=== PATIENT | female | born 1990 | race Caucasian/White ===

== ENCOUNTER 2018-09-06 12:43 | Inpatient (IN) | payer MEDICAID, OTHER ==
[~2018-09-06] VITALS: Ht 165.1 cm; Wt 91.0 kg
[~2018-09-06 12:43] MED LIST: ETOMIDATE 2MG/ML 10ML VIAL IV ONE; IBUP-777 PO; SODIUM CHLORIDE 0.9% 10ML VIAL ONE; SUCCINYLCHOLINE CHLORIDE 200MG/10ML IV ONE; VECURONIUM BROMIDE 10 MG/VIAL IV ONE
[2018-09-06 13:42] LABS: BASOPHILS % 0.7 % (0.0-2.0); EOSINOPHILS % 0.7 % (0.0-5.0); HEMATOCRIT. 36.5 % (36.0-48.0); HEMOGLOBIN. 12.5 g/dL (12.0-16.0); LYMPHOCYTES % 22.7 % (20.0-50.0); MEAN CORPUSCULAR HEMOGLOBIN 30.7 pg (28.0-32.0); MEAN CORPUSCULAR VOLUME 89.9 fL (81.0-99.0); MEAN PLATELET VOLUME 8.3 fl (7.4-10.4); MONOCYTES % 5.9 % (2.0-8.0); PLATELET 304 x1000/uL (130-400); RED BLOOD CELL COUNT 4.06 mill/uL (4.2-5.4); RED CELL DISTRIBUTION WIDTH 12.5 % (11.6-14.6)
[2018-09-06] MEDS ORDERED: LEVETIRACETAM 1000MG/100ML 100 ML IV ONE (13:45)
[2018-09-06 13:48] LABS: CHLORIDE 108 mEq/L (98-107)
[2018-09-06 13:49] LABS: PROTHROMBIN TIME 10.2 sec (9.1-11.1)
[2018-09-06 13:52] LABS: ETHANOL BLOOD < 10 mg/dL; HCG SCREEN NEGATIVE
[2018-09-06 13:56] LABS: CREATINE KINASE 103 IU/L (26-192)
[2018-09-06 13:59] LABS: PHENOBARBITAL < 2.1 ug/mL (15.0-40.0); VALPROIC ACID < 3.0 ug/mL (50-100)
[2018-09-06 14:00] LABS: CARBAMAZEPINE < 0.5 ug/mL (4-12)
[2018-09-06] MEDS ORDERED: VALPROATE SODIUM 500 MG in SODIUM CHLORIDE 0.9% 100 ML IV SCH (14:15)
[2018-09-06] MEDS ORDERED: DIVALPROEX SODIUM 250MG ER TABLET PO ONE (14:15)
[2018-09-06] MEDS ORDERED: MIDAZOLAM HCL 2 MG/2 ML VIAL IV ONE (14:45)
[2018-09-06] MEDS ORDERED: VALPROATE SODIUM 250MG/5ML UDC PO ONE (14:45)
[2018-09-06] MEDS ORDERED: LORAZEPAM 2MG/ML CPJ ONE (14:49)
[2018-09-06] MEDS ORDERED: MIDAZOLAM HCL 2 MG/2 ML VIAL ONE (14:51)
[2018-09-06] MEDS ORDERED: VECURONIUM BROMIDE 10 MG/VIAL IV ONE (15:00)
[2018-09-06] MEDS ORDERED: SUCCINYLCHOLINE CHLORIDE 200MG/10ML IV ONE (15:00)
[2018-09-06] MEDS ORDERED: PROPOFOL 10MG/ML 100ML 100 ML IV ONE (15:00)
[2018-09-06] MEDS ORDERED: ETOMIDATE 2MG/ML 10ML VIAL IV ONE (15:00)
[2018-09-06] MEDS ORDERED: PHENYTOIN SODIUM 1,000 MG in SODIUM CHLORIDE 0.9% 100 ML IV ONE (15:00)
[2018-09-06 15:45] LABS: BG BASE EXCESS -2.2 mmol/L (-2.0-2.0); BG CARBOXYHEMOGLOBIN 0.1 % (0.5-1.5); BG DEOXYHEMOGLOBIN 2.9 % (0.0-5.0); BG FRACTION INSPIRED OXYGEN 70; BG HCO3 ACT 21.5 mmol/L (22.0-26.0); BG METHEMOGLOBIN 0.2 % (0.0-1.5); BG OXYGEN SATURATION 97.1 % (92.0-98.5); BG OXYHEMOGLOBIN 96.8 % (94.0-97.0); BG PCO2 33.6 mmHg (35.0-45.0); BG PH 7.424 (7.350-7.450); BG PO2 96.4 mmHg (75.0-100.0); BG SAMPLE SITE RIGHT RADIAL; BG TIDAL VOLUME(mL) 500 mL; BG TOTAL HEMOGLOBIN 13.3 g/dL (12.0-18.0); BG VENT MODE VENT - A/C; BG VENT RATE 14 set
[2018-09-06] MEDS ORDERED: IPRATROPIUM/ALBUTEROL 0.5-3(2.5)MG/3ML NEB HHN PRN (16:00)
[2018-09-06] MEDS ORDERED: LORAZEPAM 2MG/ML CPJ IV PRN ×2 (16:00→19:30)
[2018-09-06] MEDS ORDERED: PROPOFOL 10MG/ML 100ML 100 ML IV PRN (16:00)
[2018-09-06 16:02] LABS: CLARITY URINE CLEAR (CLEAR); COLOR URINE YELLOW (YELLOW); KETONES URINE NEGATIVE (NEGATIVE); LEUKOCYTE ESTERASE URINE NEGATIVE (NEGATIVE); NITRITE URINE NEGATIVE (NEGATIVE); OCCULT BLOOD URINE NEGATIVE (NEGATIVE); PROTEIN URINE NEGATIVE (NEGATIVE); SPECIFIC GRAVITY URINE 1.017 (1.005-1.030); UROBILINOGEN URINE 0.2 E.U./dL (0.2-1.0)
[2018-09-06 16:13] LABS: *AMPHETAMINES SCREEN URINE NEGATIVE (NEGATIVE); *BARBITURATES SCREEN URINE NEGATIVE (NEGATIVE)
[2018-09-06 16:14] LABS: *BENZODIAZEPINES SCREEN URINE PRESUMTIVE POSITIVE (NEGATIVE); *COCAINE SCREEN URINE NEGATIVE (NEGATIVE); CANNABINOID URINE SCREEN NEGATIVE (NEGATIVE); METHADONE URINE SCREEN NEGATIVE (NEGATIVE); OPIATES URINE SCREEN NEGATIVE (NEGATIVE); PHENCYCLIDINE URINE SCREEN NEGATIVE (NEGATIVE)
[2018-09-06] MEDS ORDERED: MIDAZOLAM HCL 50 MG in DEXTROSE 5% WATER 40 ML IV ONE ×4 (16:15)
[2018-09-06] MEDS ORDERED: IPRATROPIUM/ALBUTEROL 0.5-3(2.5)MG/3ML NEB HHN SCH (18:00)
[2018-09-06] MEDS ORDERED: SODIUM CHLORIDE 0.9% 1,000 ML IV SCH (19:19)
[2018-09-06] MEDS ORDERED: IPRATROPIUM/ALBUTEROL 0.5-3(2.5)MG/3ML NEB INH PRN (19:30)
[2018-09-06] MEDS ORDERED: ONDANSETRON HCL 4MG/2ML INJ IV PRN (19:30)
[2018-09-06] MEDS ORDERED: GUAIFENESIN 200MG/10ML SUGAR FREE UDC PO PRN (19:30)
[2018-09-06] MEDS ORDERED: ACETAMINOPHEN 325MG TABLET PO PRN (19:30)
[2018-09-06] MEDS ORDERED: DIPHENHYDRAMINE 50MG/ML VIAL IV PRN (19:30)
[2018-09-06] MEDS ORDERED: LEVETIRACETAM 500 MG in SODIUM CHLORIDE 0.9% 100 ML IV SCH (21:00)
[2018-09-06] MEDS ORDERED: PHENYTOIN SODIUM 100MG/2ML VIAL IV SCH (22:00)
[2018-09-06 22:13] VITALS: BP 124/75
[2018-09-07] MEDS ORDERED: LAMOTRIGINE 25MG TABLET PO SCH (09:00)
== END 2018-09-06 20:30 | disposition left against medical advice (07) | DRG 133 ==
LOC: ER 12:43 → CVICU 15:12 → EDBEDREQ 15:30 → EDBEDREQTM 15:30 → EDBEDREQSVC 15:30 → ENRESERV 15:33
PROVIDERS: ADMIT Internal Medicine; ATTEND Internal Medicine
PROC: 0BH17EZ Insertion of Endotracheal Airway into Trachea, Via Natural or Artificial Opening (ICD-10-PCS; principal; 2018-09-06)
PROC: 5A1935Z Respiratory Ventilation, Less than 24 Consecutive Hours (ICD-10-PCS; 2018-09-06)
DX: J96.00 Acute respiratory failure, unspecified whether with hypoxia or hypercapnia (principal); G40.411 Other generalized epilepsy and epileptic syndromes, intractable, with status epilepticus; E87.8 Other disorders of electrolyte and fluid balance, not elsewhere classified; E83.51 Hypocalcemia; Z78.1 Physical restraint status; Z53.21 Procedure and treatment not carried out due to patient leaving prior to being seen by health care provider; Z90.49 Acquired absence of other specified parts of digestive tract; Z91.14 Patient's other noncompliance with medication regimen; Z79.899 Other long term (current) drug therapy; Z88.5 Allergy status to narcotic agent; Z88.8 Allergy status to other drugs, medicaments and biological substances; Z98.891 History of uterine scar from previous surgery
CPT/HCPCS: 36415; 36600; 71045; 80156; 80165; 80184; 80185; 80305; 80320; 82375; 82550; 82805; 84703; 93005; 96374; 96375; 99291; J0330; J1165; J1953; J2060; J2250; J2704; J3490; J7040; J7050; J7060; G0480